=== PATIENT | female | born 2000 | race African-American/Black ===

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

== ENCOUNTER 2022-01-14 14:42 | Outpatient (REF) | payer OTHER, SELFPAY ==
--- NOTE | 2022-01-14 15:52 | PFT_ITS ---
INDICATION: Dyspnea. SPIROMETRY: FEV1 to FVC 94% with an FEV1 of 2.57 L, which is 86% predicted and an FVC of 2.74 L, which is 82% predicted. No significant response to bronchodilators noted. Maximum voluntary ventilation 84% predicted. LUNG VOLUMES: Total lung capacity 79% predicted with an expiratory reserve volume of 65% predicted. DIFFUSION CAPACITY: DLCO 91% predicted. COMPARISONS: None. INTERPRETATION: No obstructive ventilatory defect. No significant response to bronchodilators noted. Maximum voluntary ventilation is within normal limits. However, the patient does have a restrictive ventilatory defect consistent mild restrictive lung disease. Therefore, need to consider underlying parenchymal lung conditions and/or neuromuscular conditions. Diffusion capacity is within normal limits. Clinical correlation is warranted. MD YINKA Dunn/MAYI / [id number]
== END 2022-01-14 14:43 | disposition home or self-care (01) ==
LOC: HO.RESP 14:42
PROVIDERS: PCP Internal Medicine; Visit Provider Internal Medicine Pulmonary Disease
DX: J45.909 Unspecified asthma, uncomplicated (principal)
CPT/HCPCS: 94060; 94727; 94729

== ENCOUNTER 2022-01-28 14:41 | Outpatient (REF) | payer OTHER, SELFPAY ==
[2022-01-28 15:45] LABS: Basophils Percent Auto 0.2 % (0-2); Eosinophils Percent Auto 0.3 % (0-4); Hematocrit 38.5 % (37.0-47.0); Hemoglobin 12.1 g/dl (12.0-16.0); Imm Gran Abs Auto 0.03 X10*3/uL (0.00-0.03); Imm Gran Pct Auto 0.3 % (0.0-0.4); Lymphocytes Absolute Auto 1.5 X10*3/uL (1.2-4.9); MANUAL DIFF FLAG SCAN; Mean Corpuscular HGB Conc 31.4 g/dl (31.0-35.0); Mean Corpuscular Volume 79.5 fL (80.0-98.0); Mean Platelet Volume 11.1 fL (9.4-12.3); Monocytes Percent Auto 16.9 % (2-11); Neutrophils Absolute Auto 8.2 x10*3/uL (2.0-8.3); Neutrophils Percent Auto 69.3 % (45-73); Platelet Count 349 X10*3/uL (160-400); Red Blood Count 4.84 X10*6/uL (4.20-5.50); Red Cell Distribution Width 15.1 % (11.0-16.0); SCAN SMEAR FLAG 1; White Blood Count 11.8 X10*3/uL (4.8-10.8)
[2022-01-28 16:05] LABS: SLIDE REVIEW VERIFIED
[2022-01-30 13:37] LABS: Rast Allergen SEE NOTES
== END 2022-01-28 14:42 | disposition home or self-care (01) ==
LOC: HO.LAB 14:41
PROVIDERS: PCP Internal Medicine; Visit Provider Internal Medicine Pulmonary Disease
DX: Z91.09 Other allergy status, other than to drugs and biological substances (principal); J45.909 Unspecified asthma, uncomplicated
CPT/HCPCS: 36415; 85025; 86003; 99212

== ENCOUNTER 2022-02-19 12:41 | Outpatient (REF) | payer OTHER, SELFPAY | END 2022-02-19 12:42 | disposition home or self-care (01) | LOC: HO.MDS 12:41 | PROVIDERS: Visit Provider Internal Medicine Pulmonary Disease | DX: J45.50 Severe persistent asthma, uncomplicated (principal) | CPT/HCPCS: 96372; J2357 ==

== ENCOUNTER 2022-03-19 11:29 | Outpatient (REF) | payer OTHER, SELFPAY | END 2022-03-19 11:30 | disposition home or self-care (01) | LOC: HO.MDS 11:29 | PROVIDERS: Visit Provider Internal Medicine Pulmonary Disease | DX: J45.50 Severe persistent asthma, uncomplicated (principal) | CPT/HCPCS: 96372; J2357 ==

== ENCOUNTER 2022-05-10 11:03 | Outpatient (REF) | payer OTHER, SELFPAY | END 2022-05-10 11:04 | disposition home or self-care (01) | LOC: HO.MDS 11:03 | PROVIDERS: Visit Provider Internal Medicine Pulmonary Disease | DX: J45.50 Severe persistent asthma, uncomplicated (principal) | CPT/HCPCS: 96372; J2357 ==

== ENCOUNTER → 2022-05-13 15:15 | Outpatient (BNVA) | payer OTHER, SELFPAY | PROVIDERS: PCP Internal Medicine; Visit Provider Advanced Practice Midwife | DX: N94.6 Dysmenorrhea, unspecified (principal) | CPT/HCPCS: 99202 ==

== ENCOUNTER → 2022-06-03 15:10 | Outpatient (BNVA) | payer OTHER, SELFPAY | PROVIDERS: PCP Internal Medicine; Visit Provider Internal Medicine Pulmonary Disease | DX: J45.909 Unspecified asthma, uncomplicated (principal); Z91.09 Other allergy status, other than to drugs and biological substances; Z79.899 Other long term (current) drug therapy | CPT/HCPCS: 99212 ==

== ENCOUNTER 2022-06-10 09:37 | Outpatient (REF) | payer OTHER, SELFPAY | END 2022-06-10 09:38 | disposition home or self-care (01) | LOC: HO.MDS 09:37 | PROVIDERS: Visit Provider Internal Medicine Pulmonary Disease | DX: J45.50 Severe persistent asthma, uncomplicated (principal) | CPT/HCPCS: 96372; J2357 ==

== ENCOUNTER 2022-07-08 14:37 | Outpatient (REF) | payer OTHER, SELFPAY | END 2022-07-08 14:38 | disposition home or self-care (01) | LOC: HO.MDS 14:37 | PROVIDERS: Visit Provider Internal Medicine Pulmonary Disease | DX: J45.50 Severe persistent asthma, uncomplicated (principal) | CPT/HCPCS: 96372; J2357 ==

== ENCOUNTER 2022-08-12 13:31 | Outpatient (REF) | payer OTHER, SELFPAY | END 2022-08-12 13:32 | disposition home or self-care (01) | LOC: HO.MDS 13:31 | PROVIDERS: Visit Provider Internal Medicine Pulmonary Disease | DX: J45.50 Severe persistent asthma, uncomplicated (principal) | CPT/HCPCS: 96372; 99212; J2357 ==

== ENCOUNTER 2022-09-10 09:03 | Outpatient (REF) | payer OTHER, SELFPAY | END 2022-09-10 09:04 | disposition home or self-care (01) | LOC: HO.MDS 09:03 | PROVIDERS: Visit Provider Internal Medicine Pulmonary Disease | DX: J45.50 Severe persistent asthma, uncomplicated (principal) | CPT/HCPCS: 96372; J2357 ==

== ENCOUNTER 2022-10-08 14:48 | Outpatient (REF) | payer OTHER, SELFPAY | END 2022-10-08 14:49 | disposition home or self-care (01) | LOC: HO.MDS 14:48 | PROVIDERS: Visit Provider Internal Medicine Pulmonary Disease | DX: J45.50 Severe persistent asthma, uncomplicated (principal) | CPT/HCPCS: 96372; J2357 ==

== ENCOUNTER 2022-11-12 13:00 | Outpatient (REF) | payer OTHER, SELFPAY | END 2022-11-12 13:01 | disposition home or self-care (01) | LOC: HO.MDS 13:00 | PROVIDERS: Visit Provider Internal Medicine Pulmonary Disease | DX: J45.50 Severe persistent asthma, uncomplicated (principal) | CPT/HCPCS: 96372; J2357 ==

== ENCOUNTER 2022-12-10 10:19 | Outpatient (REF) | payer OTHER, SELFPAY | END 2022-12-10 10:20 | disposition home or self-care (01) | LOC: HO.MDS 10:19 | PROVIDERS: Visit Provider Internal Medicine Pulmonary Disease | DX: J45.50 Severe persistent asthma, uncomplicated (principal) | CPT/HCPCS: 96372; J2357 ==

== ENCOUNTER 2023-01-10 10:05 | Outpatient (REF) | payer OTHER, SELFPAY | END 2023-01-10 10:06 | disposition home or self-care (01) | LOC: HO.MDS 10:05 | PROVIDERS: Visit Provider Internal Medicine Pulmonary Disease | DX: J45.50 Severe persistent asthma, uncomplicated (principal); Z30.018 Encounter for initial prescription of other contraceptives; N94.6 Dysmenorrhea, unspecified | CPT/HCPCS: 96372; 99212; J2357 ==

== ENCOUNTER 2023-03-03 09:08 | Outpatient (REF) | payer OTHER, SELFPAY | END 2023-03-03 09:09 | disposition home or self-care (01) | LOC: HO.MDS 09:08 | PROVIDERS: Visit Provider Internal Medicine Pulmonary Disease | DX: J45.50 Severe persistent asthma, uncomplicated (principal) | CPT/HCPCS: 96372; J2357 ==

== ENCOUNTER 2023-05-06 08:36 | Outpatient (REF) | payer OTHER, SELFPAY | END 2023-05-06 08:37 | disposition home or self-care (01) | LOC: HO.MDS 08:36 | PROVIDERS: Visit Provider Internal Medicine Pulmonary Disease | DX: J45.50 Severe persistent asthma, uncomplicated (principal) | CPT/HCPCS: 96372; J2357 ==

== ENCOUNTER 2023-06-17 | Outpatient (REF) | payer OTHER, SELFPAY | END 2023-06-17 00:01 | LOC: HO.MDS | PROVIDERS: Visit Provider Internal Medicine Pulmonary Disease | DX: J45.50 Severe persistent asthma, uncomplicated (principal) | CPT/HCPCS: 96372; J2357 ==

== ENCOUNTER 2023-06-17 08:24 | Outpatient (REF) | payer OTHER, SELFPAY | END 2023-06-17 08:25 | disposition home or self-care (01) | LOC: HO.MDS 08:24 | PROVIDERS: Visit Provider Internal Medicine Pulmonary Disease | DX: J45.50 Severe persistent asthma, uncomplicated (principal) | CPT/HCPCS: 96372; J2357 ==

== ENCOUNTER 2023-08-05 12:33 | Outpatient (REF) | payer OTHER, SELFPAY | END 2023-08-05 12:34 | disposition home or self-care (01) | LOC: HO.MDS 12:33 | PROVIDERS: Visit Provider Internal Medicine Pulmonary Disease | DX: J45.50 Severe persistent asthma, uncomplicated (principal) | CPT/HCPCS: 96372; J2357 ==

== ENCOUNTER 2023-10-18 11:13 | Outpatient (AMB) | payer OTHER, SELFPAY ==
[2023-10-18 11:15] VITALS: BP 118/64; PULSE 70; O2SAT 100; BMI 25.2
--- NOTE | 2023-10-18 11:15 | A.OFFVIS_ITS ---
Intake Vital Signs 10/18/23 11:15 Height 5 ft Weight 129 lb BMI 25.2 BP 118/64 Blood Pressure Location Rt brachial Position Sitting Pulse 70 Pulse Source Pulse Oximeter Pulse Oximetry (%) 100 Oxygen Delivery Method Room Air Intake Visit Reasons: asthma [employer] Supervisor Required: No Supervisor Incising: Supervisor Incising offered & declined Accompanied by: Self / Same As Patient Allergies No Known Allergies Allergy (Verified 10/18/23 11:21) Medication List - Last Reconciled 10/18/23 by Rose Adams LPN albuterol sulfate 2.5 mg (3 mL) inhalation Q4-6H PRN albuterol sulfate 90 mcg/actuation (ProAir HFA) 2 puffs inhalation Q4-6H PRN omalizumab (Xolair) 300 mg (2 mL) subcut Q4W 28 days sertraline (Zoloft) 50 mg PO DAILY HPI asthma HPI Details Ginette is a pleasant 23 year old female with underlying history of severe persistent allergic asthma and environmental allergies.? Today presents for a routine follow up. Overall she reports good control of symptoms, however over the past few months has noticed an increase in frequency of wheezing which she attributes to getting a new dog. She does admit to stopping her symbicort about one year ago and does not recall using singular. She currently denies any respiratory symptoms today. [facility] Medical History Asthma Social History (Updated 10/18/23 @ 11:23 by Rose Adams LPN) Alcohol intake: never Patient Tobacco Use Status: Never used Tobacco Smoked in Last 30 Days: No Female Reproductive History Menstrual Age of Menarche: 12 Review of Systems Const Denies chills, Denies excessive sweating, Denies fever(s), Denies headache(s) and Denies night sweats Eyes Denies dry eyes, Denies irritation and Denies itchy eyes ENT Reports Normal hearing present, Denies headache(s), Denies nasal congestion, Denies nasal discharge, Denies post nasal drip and Denies sore throat Card Denies chest pain, Denies chest pain at rest, Denies chest pain with activity, Denies claudication, Denies leg edema, Denies dyspnea, Denies dyspnea on exertion, Denies orthopnea and Denies paroxysmal nocturnal dyspnea Resp Denies chest congestion, Denies cough, Denies excessive phlegm production, Denies pain on inspiration, Denies pain with cough, Denies dyspnea, Denies dyspnea on exertion and Denies stridor Musc Denies myalgias Neuro Reports Normal hearing present and Denies headache(s) Endo Denies excessive sweating Judson/Lymph Denies lymphadenopathy Aller/Immun Denies itchy eyes and Denies seasonal rhinorrhea Physical Exam Vital Signs: Last Vital Signs Pulse 70 10/18/23 11:15 BP 118/64 10/18/23 11:15 Pulse Ox 100 10/18/23 11:15 Oxygen Delivery Method Room Air 10/18/23 11:15 BMI result Body Mass Index 25.2 Const General: cooperative, healthy appearing, comfortable, no acute distress, well developed and alert Orientation/consciousness: patient oriented x3 Limitations: no limitations HEENT Head: Yes normal to inspection, Yes normocephalic and Yes atraumatic Ears: hearing grossly normal bilaterally and external ears normal Eyes General: appearance normal, both eyes and all related structures Eyelids: Yes eyelids normal Sclerae: sclerae normal EOM: EOMs intact bilaterally Neck Neck: Yes normal visual inspection and Yes no lymphadenopathy Lymphatic: no lymphadenopathy noted Chest Chest palpation & inspection: normal inspection of the chest Resp Effort & Inspection: normal respiratory effort, able to speak in complete sentences, no audible wheezes, no cough, no stridor, not tachypneic, no tripod positioning and no use of accessory muscles Auscultation: clear to auscultation bilaterally Cardio Jugular venous distension: no JVD Rate: regular rate Rhythm: regular rhythm Skin Other: warm, dry General skin exam: no rashes or lesions noted Neuro General: patient oriented x3 Cranial nerves: Yes Normal hearing present Cognition (Neuro): normal cognition Gait exam (Neuro): Normal gait present Extrem General: Yes normal to inspection, Yes capillary refill normal, Yes no clubbing, cyanosis or edema and Yes no pedal edema Psych Appearance: grossly normal and well kempt Speech and movement: Normal speech and movement present and Clear speech present Affect: normal affect Attitude: cooperative Thought process: Normal thought process present Thought content: Normal thought content present Insight: Good insight present (Psych) Judgement: Good judgement present (Psych) Assessment & Plan Assessment & Plan (1) Asthma: Code(s): J45.909 - Unspecified asthma, uncomplicated Plan: Baseline controlled on Symbicort, Xolair, and albuterol MDI/nebs. Continue current regimen. Will treat bronchitic exacerbation with a course of azithromycin. (2) Environmental allergies: Code(s): Z91.09 - Other allergy status, other than to drugs and biological substances Plan: Baseline controlled on Xolair and Singulair. Continue current regimen. Plan Overall Ginette has had significant improvements while using Xolair, without adverse effects, but over the last few months has noticed intermittent wheezing which resolves with albuterol MDI. Will send in symbicort 80 for her to restart and if needed will increase back to symbicort 160. She would like to hold of on singulair at this time. Advised her to call Jaz Duenas to arrange xolair teaching, as she will be self injecting. Epipen rx sent and reviewed when to use. All questions were answered and patient is in agreement of plan. Will follow up with Dr. Hernandez for regularly scheduled appointment. Medications: New budesonide-formoterol 80-4.5 mcg/actuation (Symbicort) 2 puffs inhalation Q12H 10.2 grams 6RF epinephrine (EpiPen 2-[place]) 0.3 mg (0.3 mL) IM Q4H PRN 2 ea 0RF anaphylaxis Refilled albuterol sulfate 90 mcg/actuation (ProAir HFA) 2 puffs inhalation Q4-6H PRN 8.5 grams 6RF bronchospasm Coding Level of Care Code Est Pt Level 4 (31797) Diagnoses Asthma J45.909 Environmental allergies Z91.09
== END 2023-10-18 11:40 | disposition home or self-care (01) ==
PROVIDERS: PCP Internal Medicine; Visit Provider Nurse Practitioner Family
DX: J45.909 Unspecified asthma, uncomplicated (principal); Z91.09 Other allergy status, other than to drugs and biological substances
CPT/HCPCS: 99214

== ENCOUNTER → 2023-10-18 11:13 | Outpatient (BNVA) | payer OTHER, SELFPAY | PROVIDERS: PCP Internal Medicine; Visit Provider Nurse Practitioner Family | DX: J45.909 Unspecified asthma, uncomplicated (principal); Z91.09 Other allergy status, other than to drugs and biological substances | CPT/HCPCS: 99212 ==

== ENCOUNTER 2023-12-20 11:02 | Outpatient (AMB) | payer OTHER, SELFPAY ==
[2023-12-20 11:10] VITALS: BP 102/62; PULSE 82; O2SAT 99; BMI 25.6
--- NOTE | 2023-12-20 11:10 | A.OFFVIS_ITS ---
Intake Vital Signs 12/20/23 11:10 Height 5 ft Weight 131 lb 2.801 oz BMI 25.6 BP 102/62 Blood Pressure Location Lt brachial Position Sitting Pulse 82 Pulse Source Doppler Pulse Oximetry (%) 99 Oxygen Delivery Method Room Air Intake Visit Reasons: Asthma Allergies No Known Allergies Allergy (Verified 12/20/23 11:14) HPI Asthma HPI Details 23-year-old, with underlying history of childhood asthma previously seen at [facility], now followed for severe persistent allergic asthma and environmental allergies.? His symptoms previously have been well controlled on Xolair, Symbicort, and albuterol MDI/nebs until patient had to move for school and was no longer receives injections. Though she denies an acute exacerbation. [facility] Medical History Asthma Social History (Updated 10/18/23 @ 11:23 by Rose Adams LPN) Alcohol intake: never Patient Tobacco Use Status: Never used Tobacco Female Reproductive History Menstrual Age of Menarche: 12 Review of Systems Const Denies daytime sleepiness, Denies excessive sweating, Denies fatigue, Denies fever(s), Denies lethargy, Denies malaise, Denies night sweats, Denies snoring and Denies weight loss Eyes Denies blurry vision and Denies itchy eyes ENT Denies nasal congestion, Denies post nasal drip, Denies sinus pain, Denies sinus pressure and Denies other ( Thrush) Card Denies chest pain, Denies pedal edema, Denies dyspnea, Denies orthopnea and Denies paroxysmal nocturnal dyspnea Resp Denies cough, Denies hemoptysis, Denies excessive phlegm production, Denies dyspnea, Denies snoring and Denies wheezing GI Denies abdominal pain and Denies heartburn Musc Denies myalgias, Denies arthralgias and Denies joint swelling Skin/Breast Denies rash Neuro Denies memory loss and Denies seizure-like activity Psych Denies abnormal sleep pattern, Denies anxiety and Denies memory loss Endo Denies excessive sweating, Denies fatigue and Denies heat intolerance Judson/Lymph Denies easy bruising Aller/Immun Denies itchy eyes, Denies seasonal rhinorrhea and Denies wheezing Physical Exam Vital Signs: Last Vital Signs Pulse 82 12/20/23 11:10 BP 102/62 12/20/23 11:10 Pulse Ox 99 12/20/23 11:10 Oxygen Delivery Method Room Air 12/20/23 11:10 BMI result Body Mass Index 25.6 Const General: no acute distress and alert Nutritional Appearance: not obese Orientation/consciousness: Other orientation findings ( oriented) HEENT Head: Yes atraumatic Eyes General: appearance normal, both eyes and all related structures Sclerae: sclerae normal EOM: EOMs intact bilaterally Neck Neck: Yes supple Lymphatic: no lymphadenopathy noted Resp Effort & Inspection: normal respiratory effort and no use of accessory muscles Auscultation: clear to auscultation bilaterally Cardio Rate: regular rate Rhythm: regular rhythm Heart sounds: no gallops, no murmurs and no rubs Skin General skin exam: other ( warm) Extrem General: No clubbing, No cyanosis and No edema Assessment & Plan Assessment & Plan (1) Asthma: Code(s): J45.909 - Unspecified asthma, uncomplicated Plan: Suboptimally controlled of Xolair. Restart Xolair. Continue Symbicort, albuterol MDI/nebs. (2) Environmental allergies: Code(s): Z91.09 - Other allergy status, other than to drugs and biological substances Plan: Very poor control of Xolair. Restart Xolair. Medications: Refilled albuterol sulfate 90 mcg/actuation (ProAir HFA) 2 puffs inhalation Q4-6H PRN 8.5 grams 6RF bronchospasm budesonide-formoterol 80-4.5 mcg/actuation (Symbicort) 2 puffs inhalation Q12H 10.2 grams 6RF Coding Level of Care Code Est Pt Level 4 (11606) Diagnoses Asthma J45.909 Environmental allergies Z91.09
== END 2023-12-20 11:26 | disposition home or self-care (01) ==
PROVIDERS: PCP Internal Medicine; Visit Provider Internal Medicine Pulmonary Disease
DX: J45.909 Unspecified asthma, uncomplicated (principal); Z91.09 Other allergy status, other than to drugs and biological substances
CPT/HCPCS: 99214

== ENCOUNTER → 2023-12-20 11:02 | Outpatient (BNVA) | payer OTHER, SELFPAY | PROVIDERS: PCP Internal Medicine; Visit Provider Internal Medicine Pulmonary Disease | DX: J45.909 Unspecified asthma, uncomplicated (principal); Z91.09 Other allergy status, other than to drugs and biological substances | CPT/HCPCS: 99212 ==

== ENCOUNTER 2024-05-21 14:31 | Outpatient (AMB) | payer OTHER, SELFPAY ==
[2024-05-21 14:43] VITALS: BP 102/62; BMI 26.2
--- NOTE | 2024-05-21 14:43 | A.OFFVIS_ITS ---
Vital Signs 05/21/24 14:43 Height 5 ft Weight 134 lb BMI 26.2 BP 102/62 Intake Visit Reasons: heavy menses Research Animal Attendant Required: No Information Interpreted: clinical only Curriculum Facilitator: Curriculum Facilitator Present Allergies No Known Allergies Allergy (Verified 05/21/24 14:43) Medication List - Last Reconciled 05/21/24 by Sharron Vazquez CNM albuterol sulfate 2.5 mg (3 mL) inhalation Q4-6H PRN albuterol sulfate 90 mcg/actuation (ProAir HFA) 2 puffs inhalation Q4-6H PRN budesonide-formoterol 80-4.5 mcg/actuation (Symbicort) 2 puffs inhalation Q12H epinephrine (EpiPen 2-Wellington) 0.3 mg (0.3 mL) IM Q4H PRN omalizumab (Xolair) 300 mg (2 mL) subcut Q4W 28 days Is last menstrual period known: Yes Last menstrual period: 05/17/24 HPI HPI heavy menses: Details: Patient is here to discuss her control she was on Zoloft and she is no longer on it but it made her better taking pills which is what problem was with the control pills in the past. Last year she switch from pills to the NuvaRing because she was forgetting to take pills but she could not put the NuvaRing and side she also did not have look trying tampons either. She is supposed to have her annual exam and 1st Pap smear this year but she is still not in the mood for that her periods started on the and she called for this appointment could the clots were really big and her cramps were very painful and she got dizzy with them. She also was told that she was borderline anemic so she has been taking iron every day plus a be juice supplement that her grandma recommended plus vitamin-C and B12 she tries to eat well but she was not eating really good for a while because she was going between on campus and off campus and that also contributed to her not pills regularly last year. Nevertheless she wants to start again and her mom also let her know that she did have the Gardasil vaccine and she was 18. [facility] Medical History Asthma Social History Alcohol intake: never Patient Tobacco Use Status: Never used Tobacco Female Reproductive History Menstrual Age of Menarche: 12 Duration of menses: 3-5 days Date of last menstrual period: 05/17/24 control method: none Total pregnancies: 0 Physical Exam Vital Signs: Last Vital Signs BP 102/62 05/21/24 14:43 BMI result Body Mass Index 26.2 Assessment & Plan Assessment & Plan (1) Severe dysmenorrhea: Comment: Wants to start back on control pills to help her with her severe cramps. Code(s): N94.6 - Dysmenorrhea, unspecified Category: Medical (2) Environmental allergies: Code(s): Z91.09 - Other allergy status, other than to drugs and biological substances Category: Medical (3) Asthma: Code(s): J45.909 - Unspecified asthma, uncomplicated Category: Medical (4) BCP ( control pills) initiation: Code(s): Z30.011 - Encounter for initial prescription of contraceptive pills Category: Medical (5) Cervical cancer screening: Comment: To reschedule her annual with 1st Pap for within the next 3 months. Patient says her mom told her she did get the Gardasil when she was 18. Code(s): Z12.4 - Encounter for screening for malignant neoplasm of cervix Category: Medical Plan ----I reviewed available options for Control Methods and their associated side effect profiles. In particular, we discussed the method most of interest to her. Thorough review of her experience with pills and pill taking as well as her vitamin and supplement and Zoloft taking as well as what challenges she had had in the past and what can contribute to helping her do better this time if that is her intention she does want to start back on them to help with her cramps so since that is her intention review that the more she misses the pills even if she is sexually not active it only will contribute to more spotting and challenges. Reviewed different ways that she can help herself beyond time with them including taking other supplements at the same time. Reviewed risks and dangers of the control pills. She said that her grandmother does have circulation problems and she had also stated that she was concerned about other family medical issues that run in the family but I reviewed that starting to screen for some of these things including cervical cancer involves starting with the Pap smear which I recommend she do this year before she turns 24 . Prescription for the same pills she had been on before was sent to [facility] [place]. 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 We will see her in sometime in the next 3 months to go over her pills with her and do her 1st annual and Pap smear. Medications: New desog-e.estradiol/e.estradiol 0.15-0.02 mgx21 /0.01 mg x 5 1 tab PO DAILY 84 tabs 4RF Coding Level of Care Code Est Pt Level 3 (42980) Diagnoses Severe dysmenorrhea N94.6 Environmental allergies Z91.09 Asthma J45.909 BCP ( control pills) initiation Z30.011 Cervical cancer screening Z12.4
== END 2024-05-21 15:54 | disposition home or self-care (01) ==
LOC: HO.HWSM 14:31
PROVIDERS: PCP Internal Medicine; Visit Provider Advanced Practice Midwife
DX: N94.6 Dysmenorrhea, unspecified (principal); Z30.011 Encounter for initial prescription of contraceptive pills; J45.909 Unspecified asthma, uncomplicated; Z91.09 Other allergy status, other than to drugs and biological substances
CPT/HCPCS: 99213

== ENCOUNTER → 2024-05-21 14:31 | Outpatient (BNVA) | payer OTHER, SELFPAY | PROVIDERS: PCP Internal Medicine; Visit Provider Advanced Practice Midwife | DX: N94.6 Dysmenorrhea, unspecified (principal); J45.909 Unspecified asthma, uncomplicated; Z91.09 Other allergy status, other than to drugs and biological substances; Z30.011 Encounter for initial prescription of contraceptive pills | CPT/HCPCS: 99212 ==

== ENCOUNTER 2025-06-13 13:46 | Outpatient (AMB) | payer OTHER, SELFPAY ==
--- OUTSIDE RECORDS SUMMARY | 2024-10-19 05:00 | XMS_ITS ---
Author Organization [facility] Address [address] [address] Care Team Providers Care Automobile Mechanic Motor Name Role Phone IVANA GONSALES Unavailable [phone] REASON FOR VISIT Annual ORDER MANAGER Physical Medications Medication SIG (Take, Route, Frequency, Duration) Notes Start Date End Date Status Ortho Evra 150-35 MCG/24HR 1 patch to sk in weekly x3 , repeat monthly Transdermal WEEKLY; Duration: 90 days 05/03/2019 Active Prometrium 200 MG 2 capsules at bedtim e Orally Once a day; Duration: 12 day(s) 05/03/2019 Active Social History Tobacco Use: Social History Observation Description Date Details (start date - stop date) Never Smoker NA - NA AUDIT-C (Standard) Question Answer Notes Did you have a drink containing alcohol in the p ast year? No Points 0 Interpretation Negative Tobacco Control (Standard) Question Answer Notes Tobacco use: Nonsmoker Problems Problem Type SNOMED Code ICD Code Onset Dates Problem Status W/U Status Risk Notes Problem Asthma (281565688) Other asthma (J45.998) Active confirmed Encounters Encounter Location Date Provider Diagnosis [facility] [address] [address] 10/19/2024 IVANA GONSALES Encounter for gynecological examination (general) (routine) without abnormal findings Z01.419 and Encounter for screening for infections with a predominantly sexual mode of transmission Z11.3 Assessments Encounter Date Diagnosis (ICD Code) Assessment Notes Treatment Notes Treatment Clinical Notes Section Notes 10/19/2024 Encounter for gynecological examination (general) (routine) without abnormal findings (ICD-10 - Z01.419) Discussed cervical cancer screening with cytology every 3 years as per ASCCP guidelines. Advised continued annual pelvic exams. Patient encouraged to increase her level of exercise. SBE technique encouraged/tau ght. Safe sexual practices and STI prevention discussed. 10/19/2024 Encounter for screening for infections with a predominantly sexual mode of transmission (ICD-10 - Z11.3) Plan Of Treatment Treatment Notes Assessment Notes Encounter for gynecological examination (general) (routine) without abnormal findings Discussed cervical cancer screening with cytology every 3 years as per ASCCP guidelines. Advised continued annual pelvic exams. Patient encouraged to increase her level of exercise. SBE technique encouraged/taught. Safe sexual practices and STI prevention discussed. Next Appt Details Follow Up: 1 Year, Reason: Y early Battery Container Tester Exam Progress Notes * GINETTE ZIEGLERDOB:2000 (24 yo F)Acc No.[id number]:10/19/2024 PROGRESS NOTES Patient: GINETTE LOW Provider: Sesar GONSALES MD :2000 A ge:24 Y S ex:Female Date:10/19/2024 Address:[address] [place], [place] [id number] Subjective: * Chief Complaints: * 1 . Annual ORDER MANAGER Physical. 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 She is new again to this practice, having last received medical billing and coding instructor care here at age 18. She has been in state of health since her last exam. She has the following concerns: . She has received the Covid-19 vaccine. Relationship status: for years. She is sexually active. Sexual partner(s): male. She does wish to have STI testing. Menses: Contraception: The patient has had an abnormal pap smear within the last 5 years. Her most recent pap smear was . The patient does exercise. She exercises x days/week by . * ROS: A nnual Battery Container Tester Exam ROS: Bowel habit changes d enies. B ladder symptoms d enies. V aginal discharge, unusual d enies. V aginal itch or odor d enies. w eight or appetite changes d enies. C hest pains, SOB d enies. d epression d enies.? B reast: Denies B reast lump. D enies N ipple discharge.? H ematology: Denies S wollen glands. S kin: Patient denies c hanging moles. P sychiatric: Denies A nxiety. * Medical History: P rimary dysmenorrhea, Other specified abnormal uterine and vaginal bleeding, Other asthma. * Battery Container Tester History: G ravida/ Para 0 /0. S exual activity n ot currently sexually active. L ast Pap Smear: P ap not indicated due to age. M ammogram: n ot due per age. A bnormal Pap Smear: n o history of abnormal pap smears. L MP and menses . H istory of STD's: n one. B irth Control: a bstinence. M enarche 1 1. G ardasil: s tarted vaccine, has had first two.. * Hep B Vac n o. * OB History: T otal pregnancies 0 . * Social History: T obacco Use: T obacco Control (Standard) T obacco use: N onsmoker S exual History: D etails of Sexual History A re you sexually active? N o D rugs/Alcohol: D rugs H ave you used drugs other than those for medical reasons in the past 12 months? N o M iscellaneous: C hildren: no. Exercise: none. Home smoke detector use: yes. Marital status: single. Natural support system: yes. Occupation: Student. Sexually active: no. D rug/Alcohol: A KRISTIN-C (Standard) D id you have a drink containing alcohol in the past year? N o P oints 0 I nterpretation N egative * Medications: T aking Prometrium 200 MG Capsule 2 capsules at bedtime Orally Once a day , Taking Ortho Evra 150-35 MCG/24HR Patch Weekly 1 patch to skin weekly x3 , repeat monthly Transdermal WEEKLY Objective: * Vitals: * Examination: G eneral Examination: GENERAL APPEARANCE: i n no acute distress,well developed, well nourished,therapeutic riding instructor present in room. HEAD: n ormocephalic, atraumatic. NECK/THYROID: n tevin supple, full range of motion,thyroid normal. LYMPH NODES: n o axillary or supraclavicular adenopathy.? SKIN: n ormal,good turgor,no rashes,no suspicious lesions.? BREASTS: n ormal,no dimpling,no discharge,no drainage,no masses palpable bilaterally,nontender. ABDOMEN: s oft, non-tender, non distended without masses or hepatosplenomegay. BACK: n o costovertebral angle tenderness. FEMALE GENITOURINARY: V ulva without lesions or masses, vagina pink without abnormal discharge, lesions or masses, cervix appears normal and is not tender to palpation, uterus is normal size, mobile, nontender and anteverted, ovaries are not palpable. NEUROLOGIC: a lert and oriented,gait normal. PSYCH: a lert, oriented,cognitive function intact,cooperative with exam,good eye contact,mood/affect full range,speech clear. Assessment: * Assessment: 1. E ncounter for gynecological examination (general) (routine) without abnormal findings - Z01.419 (Primary) 2 . E ncounter for screening for infections with a predominantly sexual mode of transmission - Z11.3 Plan: * Treatment: * Follow Up: 1 Year (Reason: Yearly Battery Container Tester Exam) * Images: Billing Information: * Visit Code: * Procedure Codes: * Electronic signature of IVANA GONSALES MD on 06/13/2025 at 03:02 PM EDT Sign off status: Pending * Provider: Sesar GONSALES MD Date: 0 10/19/2024 Generated for Candace park/Alma/Violettaitting on: 0 06/13/2025 03:02 PM EDT History and Physical Notes * HPI (History of Present Illness) Category Sub-Category Detail Notes Category Not es Constitutional Ginette is a 24yo GxPx with LMP x/x/x who 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 She is new again to this practice, having last received medical billing and coding instructor care here at age 18. She has been in state of health since her last exam. She has the following concerns: . She has received the Covid-19 vaccine. Relationship status: for years. She is sexually active. Sexual partner(s): male. She does wish to have STI testing. Menses: Contraception: The patient has had an abnormal pap smear within the last 5 years. Her most recent pap smear was . The patient does exercise. She exercises x days/week by . Examination Category Sub-Category Detail Notes Category Not es General Examination GENERAL APPEARANCE: in no ac hyacinth distress, well developed, well nourished, therapeutic riding instructor present in room HEAD: normocephalic, atrau matic NECK/THYROID: neck supple, full ra nge of motion, thyroid normal ABDOMEN: soft, non-tender, no n distended without masses or hepatosplenomegay NEUROLOGIC: alert and oriented, gait normal SKIN: normal, good turgor, no rashes, no suspicious lesions BACK: no costovertebral an gle tenderness BREASTS: normal, no dimpling, no discharge, no drainage, no masses palpable bilaterally, nontender LYMPH NODES: no axillary or supra clavicular adenopathy PSYCH: alert, oriented, cog nitive function intact, cooperative with exam, good eye contact, mood/affect full range, speech clear FEMALE GENITOURINARY: Vulva without lesi ons or masses, vagina pink without abnormal discharge, lesions or masses, cervix appears normal and is not tender to palpation, uterus is normal size, mobile, nontender and anteverted, ovaries are not palpable
[2025-06-13 13:47] VITALS: BP 118/67; PULSE 87; O2SAT 97; BMI 27.9
--- NOTE | 2025-06-13 13:47 | A.OFFVIS_ITS ---
Vital Signs 06/13/25 13:47 Height 5 ft Weight 143 lb BMI 27.9 BP 118/67 Blood Pressure Location Rt brachial Position Sitting Pulse 87 Pulse Source Pulse Oximeter Pulse Oximetry (%) 97 Oxygen Delivery Method Room Air Intake Visit Reasons: asthma Allergies No Known Allergies Allergy (Verified 06/13/25 13:52) HPI HPI asthma: Details: 24-year-old lady, with underlying history of childhood asthma previously seen at [facility], now followed for severe persistent allergic asthma and env ironmental allergies.? Her symptoms were previously well controlled on Xolair, Symbicort, and albuterol MDI/nebs, however over the last academic year she was not able to get her Xolair injections in her symptom control has significantly worsened. Though, she denies an acute exacerbation at this time. [facility] Medical History Asthma Social History Alcohol intake: never Patient Tobacco Use Status: Never used Tobacco Female Reproductive History Menstrual Age of Menarche: 12 Review of Systems Const Denies daytime sleepiness, Denies excessive sweating, Denies fatigue, Denies fever(s), Denies lethargy, Denies malaise, Denies night sweats, Denies snoring and Denies weight loss Eyes Denies blurry vision and Denies itchy eyes ENT Denies nasal congestion, Denies post nasal drip, Denies sinus pain, Denies sinus pressure and Denies other ( Thrush) Card Denies chest pain, Denies pedal edema, Denies dyspnea, Denies orthopnea and Denies paroxysmal nocturnal dyspnea Resp Denies cough, Denies hemoptysis, Denies excessive phlegm production, Denies dy spnea, Denies snoring and Denies wheezing GI Denies abdominal pain and Denies heartburn Musc Denies myalgias, Denies arthralgias and Denies joint swelling Skin/Breast Denies rash Neuro Denies memory loss and Denies seizure-like activity Psych Denies abnormal sleep pattern, Denies anxiety and Denies memory loss Endo Denies excessive sweating, Denies fatigue and Denies heat intolerance Judson/Lymph Denies easy bruising Aller/Immun Denies itchy eyes, Denies seasonal rhinorrhea and Denies wheezing Physical Exam Vital Signs: Last Vital Signs Pulse 87 06/13/25 13:47 BP 118/67 06/13/25 13:47 Pulse Ox 97 06/13/25 13:47 Oxygen Delivery Method Room Air 06/13/25 13:47 BMI result Body Mass Index 27.9 Const General: no acute distress and alert Nutritional Appearance: not obese Orientation/consciousness: Other orientation findings ( oriented) HEENT Head: Yes atraumatic Eyes General: appearance normal, both eyes and all related structures Sclerae: sclerae normal EOM: EOMs intact bilaterally Neck Neck: Yes supple Lymphatic: no lymphadenopathy noted Resp Effort & Inspection: normal respiratory effort and no use of accessory muscles Auscultation: clear to auscultation bilaterally Cardio Rate: regular rate Rhythm: regular rhythm Heart sounds: no gallops, no murmurs and no rubs Skin General skin exam: other ( warm) Extrem General: No clubbing, No cyanosis and No edema Assessment & Plan Assessment & Plan (1) Asthma: Code(s): J45.909 - Unspecified asthma, uncomplicated Category: Medical Plan: Suboptimally controlled off Xolair. Restart Xolair. Continue Symbicort and albuterol MDI/nebs. (2) Environmental allergies: Code(s): Z91.09 - Other allergy status, other than to drugs and biological substances Category: Medical Plan: Poor control off Xolair. Restart Xolair. Continue Singulair. Medications: Refilled albuterol sulfate 2.5 mg (3 mL) inhalation Q4-6H PRN 90 mL 6RF bronchospasm albuterol sulfate 90 mcg/actuation (ProAir HFA) 2 puffs inhalation Q4-6H PRN 8.5 grams 6RF bronchospasm budesonide-formoterol 80-4.5 mcg/actuation (Symbicort) 2 puffs inhalation Q12H 10.2 grams 6RF Coding Level of Care Code Est Pt Level 4 (32012) Diagnoses Asthma J45.909 Environmental allergies Z91.09
--- OUTSIDE RECORDS SUMMARY | 2025-06-13 15:02 | XMS_ITS | Clinical Summary ---
Author Organization [facility] Address [address] [place] [address] [place] [phone] Phone Care Team Providers Care Cardiology Consultants Name Role Phone Yumiko Fernandez NP Primary Care Provider [phone] Jennifer Rivera MD Unavailable Allergies No known active allergies Medications desog-e.estradi oL/e.estradioL (KARIVA) 0.15-0.02 mgx21 /0.01 mg x 5 per tablet Take 1 tablet by mouth daily. Active levalbuterol (XOPENEX CONCENTRATE) 1.25 mg/0.5 mL nebulizer solution Take 1 ampule by nebulization every 4 (four) hours as needed for wheezing. Active montelukast (SINGULAIR) 10 mg tablet Take 10 mg by mouth nightly at bedtime. Active Encounters Date Type Department Care Team Description 03/27/2025 Telephone [facility] [address] [place] [address] Jennifer Rivera MD Appointment from Last 3 Months Family History Medical History Relation Comments Hypertension Maternal Grandmother Relation Status Comments Maternal Grandmother Mother Alive Social History Tobacco Use Types Packs/Day Years Used Date Smoking Tobacco: Never Smokeless Tobacco: Never Tobacco Cessation:Counseling Given: Not Answered Alcohol Use Standard Drinks/Week Comments Not Currently 0 (1 standard drink = 0.6 oz pur e alcohol) Education Answer Date Recorded Are you interested in more education? Not on colleen e 05/18/2024 Are you concerned about learning? Not on file 05/18/2024 No 05/18/2024 No 05/18/2024 Digital Access Answer Date Recorded No 05/18/2024 No 05/18/2024 Reliable internet access at home? Not on file 05/18/2024 Device with a working camera? Not on file Comments No Sex and Gender Information Value Date Recorded Sex Assigned at Not on file Legal Sex Female 3:27 PM EDT Gender Identity Not on file Sexual Orientation Not on file Last Filed Vital Signs Vital Sign Reading Time Taken Comments Blood Pressure 118/74 05/30/2024 7:56 AM EDT Pulse - - Temperature - - Respiratory Rate - - Oxygen Saturation - - Inhaled Oxygen Concentration - - Weight 59 kg (130 lb) 05/30/2024 7:56 AM EDT Height 152.4 cm (5') 05/30/2024 7:56 AM EDT Body Mass Index 25.39 05/30/2024 7:56 AM EDT Plan of Treatment Health Maintenance Due Date Last Done Comments DEPRESSION SCREENING 2014 SMOKING Hx and SMOKELESS TOB ACCO SCREENING 2015 HPV VACCINES (1 - 3-dose series) 2017 MENINGOCOCCAL VACCINES (B) ( 1 of 2 - Standard) 2018 HEPATITIS C SCREENING 2020 HIV ONE-TIME SCREENING (18-6 5 YEARS) 2020 PAP SMEAR 2023 COVID-19 VACCINE (1 - 2023-2 5 season) 2024 INFLUENZA VACCINE (#1) 2025 Adult Td,Tdap Booster 06/06/2025 06/06/2015 HEPATITIS A VACCINES Aged Out No long er eligible based on patient's age to complete this topic HIB VACCINES Aged Out No longer eligi ble based on patient's age to complete this topic MENINGOCOCCAL VACCINES (ACWY) Aged Out No longer eligible based on patient's age to complete this topic PNEUMOCOCCAL VACCINES (0-49 years) Aged Out No longer eligible based on patient's age to complete this topic Medical Devices Not on file Insurance [employer] [facility] [place] [employer] [place] [facility] [facility] POS [facility] Care Teams Cardiology Consultants Relationship Specialty Start Date End Date Yumiko Fernandez NP [address] [place] [id number] [email or web address] 05/18/24 Jennifer Rivera MD [address] [place] [id number] [email or web address] Obstetrics and Gynecology 11/12/24 Additional Source Comments The information contained in this document represents components of the legal health record. It is not the complete legal health record.[facility]
--- OUTSIDE RECORDS SUMMARY | 2025-06-13 15:03 | XMS_ITS | Patient Health Record ---
Author Organization [facility] Address [address] [facility] [address] [place] [address] Care Team Providers Care Card Runner Name Role Phone IVANA GONSALES Unavailable [phone] Reason For Referral No Information Medications Medication SIG (Take, Route, Frequency, Duration) [...] Status W/U Status Risk Notes Problem Asthma (272206488) Other asthma (J45.998) Active confirmed Problem Abnormal vaginal bleeding (306378946) Other specified abnormal uterine and vaginal bleeding (N93.8) Active confirmed Problem Primary dysmenorrhea (25466011) Primary dysmenorrhea (N94.4) Active confirmed Encounters Encounter Location Date Provider Diagnosis [facility] [address] [facility] [address] [place] [address] 10/19/2024 IVANA RUSSOHENS Encounter for gynecological examination (general) (routine) without [...] transmission (ICD-10 - Z11.3) Plan Of Treatment No Information Insurance Providers Payer Name Payer Address Payer Phone Subscriber Number Group Number Insured Name Patient Relationship to Insured Coverage Start Date Coverage End Date [facility] [address] [place] [address] [phone] SVETLANA ZIEGLER Self - patient is the insured Medical (General) History Medical History History ICD Code Primary dysmenorrhea N94.4 Other specified abnormal uterine and vag inal bleeding N93.8 Other asthma J45.998 Surgical History Surgery Date(Month/Year)
== END 2025-06-13 14:01 | disposition home or self-care (01) ==
LOC: HO.HPS 13:47
PROVIDERS: PCP Internal Medicine; Visit Provider Internal Medicine Pulmonary Disease
DX: J45.909 Unspecified asthma, uncomplicated (principal); Z91.09 Other allergy status, other than to drugs and biological substances
CPT/HCPCS: 99214